=== PATIENT | female | born 1940 | race Caucasian/White ===

== ENCOUNTER 2019-10-14 13:20 | Emergency (ER) | payer MEDICARE, OTHER ==
[2019-10-14] MEDS ORDERED: Bupivacaine 0.5% 10 ML SDV INJECT ONE (14:06)
--- NOTE | 2019-10-14 14:25 | EDM.PDOC ---
ED HPI GENERAL MEDICAL PROBLEM - General Chief Complaint: Upper Extremity Injury/Pain Stated Complaint: L RING FINGER INJURY Time Seen by Provider: 10/14/19 14:08 Source of Information: Reports: Patient History Limitations: Reports: No Limitations - History of Present Illness INITIAL COMMENTS - FREE TEXT/NARRATIVE: Skye presents today with complaints of left 4th finger pain. She states she was walking her dog today at 1100, the dog pulled on the leash and jerked her hand. She now has pain to her left 4th finger and cannot straighten out the finger. She denies any other injury or trauma. Left Finger-Ring Pain Score (Numeric/FACES): 8 - Related Data Allergies Allergy/AdvReac Type Severity Reaction Status Date / Time No Known Allergies Allergy Verified 10/14/19 13:44 Home Meds: Home Meds Aspirin [Josue Chewable] 81 mg PO DAILY 10/14/19 [History] Calcium Carbonate [Calcium] 600 mg PO BID 10/14/19 [History] Levothyroxine Sodium [Levoxyl] 50 mcg PO DAILY 10/14/19 [History] Losartan [Cozaar] 50 mg PO DAILY 10/14/19 [History] Multivitamin [Multivitamins] 1 each PO DAILY 10/14/19 [History] Phenytoin 100 mg PO DAILY 10/14/19 [History] Ranitidine HCl 150 mg PO BID 10/14/19 [History] Zolpidem Tartrate [Ambien] 5 mg PO BEDTIME 10/14/19 [History] amLODIPine [Norvasc] 5 mg PO DAILY 10/14/19 [History] atorvaSTATin [Lipitor] 80 mg PO BEDTIME 10/14/19 [History] Past Medical History HEENT History: Reports: Impaired Vision, Macular Degeneration Cardiovascular History: Reports: High Cholesterol, Hypertension, Stents DIRECTOR MBA History: Reports: Musculoskeletal History: Reports: Fracture Other Musculoskeletal History: fx toe Neurological History: Reports: CVA, Other (See Below) Other Neuro History: epilectic Endocrine/Metabolic History: Reports: Hypothyroidism, Obesity/BMI 30+ Oncologic (Cancer) History: Reports: Breast - Infectious Disease History Infectious Disease History: Reports: Chicken Pox - Past Surgical History GI Surgical History: Reports: Colonoscopy Female Surgical History: Reports: Mastectomy Social & Family History - Tobacco Use Smoking Status *Q: Never Smoker Second Hand Smoke Exposure: No - Caffeine Use Caffeine Use: Reports: Coffee - Alcohol Use Days Per Week of Alcohol Use: 0 - Recreational Drug Use Recreational Drug Use: No Review of Systems - Review of Systems Review Of Systems: See Below Constitutional: Reports: No Symptoms Respiratory: Reports: No Symptoms Cardiovascular: Reports: No Symptoms Musculoskeletal: Reports: Other (left 4th finger pain, unable to straighten finger. ) Skin: Reports: Bruising, Other (edema and bruising to left 4th finger) ED EXAM, GENERAL - Physical Exam Exam: See Below Exam Limited By: No Limitations General Appearance: Alert, WD/WN, No Apparent Distress Head: Atraumatic, Normocephalic Respiratory/Chest: No Respiratory Distress, Lungs Clear, Normal Breath Sounds, No Accessory Muscle Use, Chest Non-Tender Cardiovascular: Normal Peripheral Pulses, Regular Rate, Rhythm, No Edema, No Murmur, No Rub Peripheral Pulses: 2+: Radial (L), Radial (R) Extremities: Non-Tender, No Pedal Edema, Normal Capillary Refill, Other (pain to left 4th finger, appears dislocated and in flexed 90degree position) Neurological: Alert, Oriented, Normal Cognition, Normal Gait, Normal Reflexes, No Motor/Sensory Deficits Psychiatric: Normal Affect, Normal Mood Skin Exam: Warm, Dry, Intact, Ecchymosis Lymphatic: No Adenopathy ED TRAUMA EXTREMITY PROCEDURES - Joint Reduction Left Fingers Sedation: Digital Block Local Anesthesia - Bupivicaine (Marcaine): 0.5% Plain Local Anesthetic Volume: 2cc Pre-Procedure NV Status: Normal Post-Procedure NV Status: Normal Technique: Traction/Counter Traction Number of Attempts: 1 Post-Reduction Imaging: Completely Reduced Joint Reduction Complications: No Progress/Comments: Metal foam finger splint applied. Course - Vital Signs Last Recorded V/S: Last Vital Signs Temp 36.4 C 10/14/19 15:26 Pulse 54 L 10/14/19 15:26 Resp 16 10/14/19 15:26 BP 170/67 H 10/14/19 15:26 Pulse Ox 98 10/14/19 15:26 - Orders/Labs/Meds Orders: Active Orders 24 hr Category Date Time Status Fingers Fourth Digit Lt F3 [CR] Stat Exams 10/14/19 14:05 Taken Fingers Fourth Digit Lt F3 [CR] Stat Exams 10/14/19 14:54 Taken Meds: Medications Discontinued Medications Generic Name Dose Route Start Last Admin Trade Name Yvette PRN Reason Stop Dose Admin Bupivacaine HCl 10 ml 10/14/19 14:06 10/14/19 14:57 Sensorcaine-Mpf 0.5% INJECT 10/14/19 14:07 10 ml ONETIME ONE Administration - Radiology Interpretation Free Text/Narrative:: Initial x-ray shows 4th finger PIP dislocation. Departure - Departure Time of Disposition: 14:50 Disposition: Home, Self-Care 01 Condition: Good Clinical Impression: Dislocation, finger closed - Discharge Information *PRESCRIPTION DRUG MONITORING PROGRAM REVIEWED*: Not Applicable *COPY OF PRESCRIPTION DRUG MONITORING REPORT IN PATIENT JASBIR: Not Applicable Instructions: Finger or Thumb Dislocation, [id number] Referrals: PCP,None [Primary Care Provider] - Forms: ED Department Discharge Additional Instructions: You suffered from a 4th left finger dislocation. Keep splint on at all times for 10 days until the finger feels better. Take acetaminophen as needed for pain Ice to help with swelling if needed. Follow up with primary in 10 to 14 days if needed. Follow up with ORTHO here at [facility] in the next 7 to 10 days to monitor healing. Sepsis Event Note - Evaluation Sepsis Screening Result: No Definite Risk - Focused Exam Vital Signs: Vital Signs Temp Pulse Resp BP Pulse Ox 10/14/19 15:26 36.4 C 54 L 16 170/67 H 98 10/14/19 13:53 36.4 C 59 L 16 180/65 H 96 10/14/19 13:42 36.4 C 59 L 16 180/65 H 96 Date Exam was Performed: 10/14/19 Time Exam was Performed: 15:58 - My Orders Last 24 Hours: My Active Orders 10/14/19 14:05 Fingers Fourth Digit Lt F3 [CR] Stat 10/14/19 14:54 Fingers Fourth Digit Lt F3 [CR] Stat - Assessment/Plan Last 24 Hours: My Active Orders 10/14/19 14:05 Fingers Fourth Digit Lt F3 [CR] Stat 10/14/19 14:54 Fingers Fourth Digit Lt F3 [CR] Stat Assessment:: Dislocation, finger closed, possible volar plate avulsion left 4th finger. Plan: Patient suffered from a 4th left finger dislocation. Keep splint on at all times for 10 days until the finger feels better. Take acetaminophen as needed for pain Ice to help with swelling if needed. Follow up with primary in 10 to 14 days if needed. Follow up with ORTHO here at [facility] in the next 7 to 10 days to monitor healing.
--- NOTE | 2019-10-17 09:23 | CR ---
Fingers Fourth Digit Lt F3 CLINICAL HISTORY: Injury FINDINGS: Patient is a palmar dislocation at the fourth PIP joint with a fracture of the proximal phalanx articular surface IMPRESSION: Fracture dislocation at fourth PIP joint
--- NOTE | 2019-10-17 09:27 | CR ---
Fingers Fourth Digit Lt F3 CLINICAL HISTORY: Injury, pain, post reduction FINDINGS: There has been reduction of the fourth PIP joint dislocation. There are fractures at the articular margins of the base of the middle phalanx and the distal aspect of the proximal phalanx. IMPRESSION: Post reduction dislocation with fractures of the proximal and middle phalanx at the articular margins
== END 2019-10-14 16:04 | disposition home or self-care (01) ==
LOC: JP.ED 13:20
DX: S63.285A Dislocation of proximal interphalangeal joint of left ring finger, initial encounter (principal); E78.00 Pure hypercholesterolemia, unspecified; I10 Essential (primary) hypertension; E03.9 Hypothyroidism, unspecified; E66.9 Obesity, unspecified; Z68.34 Body mass index [BMI] 34.0-34.9, adult; Z86.73 Personal history of transient ischemic attack (TIA), and cerebral infarction without residual deficits; Z79.82 Long term (current) use of aspirin; Z79.899 Other long term (current) drug therapy; W22.8XXA Striking against or struck by other objects, initial encounter
CPT/HCPCS: 26770; 73140; 99283; J3490

== ENCOUNTER 2022-04-28 07:03 | Day surgery (SDC) | payer MEDICARE ==
[2022-04-28] MEDS ORDERED: Propofol 200 MG/20 ML SDV ONE (07:21)
[2022-04-28] MEDS ORDERED: fentaNYL 100 MCG/2 ML SDV ONE (07:21)
[2022-04-28] MEDS ORDERED: Dextrose 5%-Lactated Ringers 1,000 ML IV SCH (07:30)
[2022-04-28] MEDS ORDERED: Ampicillin/Sulbactam Na 3 GM in Sodium Chloride 0.9% 100 ML IV ONE (07:30)
[2022-04-28] MEDS ORDERED: Pantoprazole 40 MG Vial IVPUSH ONE (09:52)
== END 2022-04-28 11:18 | disposition home or self-care (01) ==
LOC: JP.SDS 07:03
PROVIDERS: ATTEND Surgery
DX: K21.00 Gastro-esophageal reflux disease with esophagitis, without bleeding (principal); K29.50 Unspecified chronic gastritis without bleeding; K22.10 Ulcer of esophagus without bleeding; K44.9 Diaphragmatic hernia without obstruction or gangrene; I10 Essential (primary) hypertension; E78.5 Hyperlipidemia, unspecified; I25.10 Atherosclerotic heart disease of native coronary artery without angina pectoris; K21.9 Gastro-esophageal reflux disease without esophagitis; E03.9 Hypothyroidism, unspecified; E66.9 Obesity, unspecified; Z68.37 Body mass index [BMI] 37.0-37.9, adult; Z88.6 Allergy status to analgesic agent; Z88.5 Allergy status to narcotic agent; Z79.899 Other long term (current) drug therapy
CPT/HCPCS: 43239; 87081; 88305; C9113; J0295; J2704; J3010

== ENCOUNTER 2025-03-16 22:15 | Emergency (ER) | payer MEDICARE ==
[2025-03-16 22:45] LABS: BASOPHILS ABSOLUTE AUTO 0.06 K/uL (0.00-0.10); BASOPHILS PERCENT AUTO 0.9 % (0.1-1.3); EOSINOPHILS ABSOLUTE AUTO 0.14 K/uL (0.00-0.40); EOSINOPHILS PERCENT AUTO 2.1 % (0.0-5.4); IMMATURE GRAN PERCENT AUTO 0.3 % (0.0-0.7); LYMPHOCYTES ABSOLUTE AUTO 1.73 K/uL (0.8-3.3); LYMPHOCYTES PERCENT AUTO 26.4 % (11.4-47.7); MONOCYTES ABSOLUTE AUTO 0.76 K/uL (0.20-0.90); MONOCYTES PERCENT AUTO 11.6 % (3.3-12.6); NEUTROPHILS ABSOLUTE AUTO 3.84 K/uL (1.0-7.6); NEUTROPHILS PERCENT AUTO 58.7 % (40.0-78.1); PLATELET COUNT,PLT 307 K/uL (130-375); RED BLOOD CELL COUNT 4.05 M/uL (3.77-5.24); WHITE BLOOD CELL COUNT,WBC 6.6 K/uL (3.2-11.0)
[2025-03-16 22:48] LABS: IMMATURE GRAN ABSOLUTE AUTO 0.02 K/uL (0.00-0.23)
[2025-03-16] MEDS: Alum Hydrox/Mag Hydrox/Simeth 15 ML, Lidocaine 2% 15 ML PO ONE (23:01)
[2025-03-16 23:10] LABS: A/G RATIO 1.2 (1.2-2.2); ALANINE AMINOTRANSFERASE,ALT 32 U/L (12-78); ASPARTATE AMNIOTRANSFERASE,AST 28 U/L (15-37); BILIRUBIN TOTAL 0.5 mg/dL (0.2-1.0); BLOOD UREA NITROGEN,BUN 11 mg/dL (7-18); CARBON DIOXIDE,CO2 27 mmol/L (21-32); CHLORIDE,CL 100 mmol/L (100-108); CREATININE 0.9 mg/dL (0.6-1.0); EST CRCL DRUG DOSING (CG) 38.12 mL/min; ESTIMATED GFR 64 mL/min (>60); GLUCOSE RANDOM 105 mg/dL (74-106); POTASSIUM,K 3.6 mmol/L (3.6-5.2); PRO B-TYPE NATRIUR PEPT,BNPPRO 74 pg/mL (5-450); PROTEIN TOTAL,TP 6.9 g/dL (6.4-8.2); SODIUM,NA 135 mmol/L (140-148)
== END 2025-03-17 01:46 | disposition home or self-care (01) ==
LOC: JP.ED 22:15
DX: R07.89 Other chest pain (principal); R07.2 Precordial pain; I10 Essential (primary) hypertension; E78.00 Pure hypercholesterolemia, unspecified; E03.9 Hypothyroidism, unspecified; E66.9 Obesity, unspecified; Z86.73 Personal history of transient ischemic attack (TIA), and cerebral infarction without residual deficits; Z79.82 Long term (current) use of aspirin; Z79.899 Other long term (current) drug therapy; Z88.5 Allergy status to narcotic agent; Z68.30 Body mass index [BMI] 30.0-30.9, adult
CPT/HCPCS: 36415; 71045; 80053; 83880; 84484; 85025; 93005; 99285; A9270; 93010